=== PATIENT | female | born 1965 | race Two or more races ===

== ENCOUNTER 2022-04-03 07:17 | Outpatient (CLI) | payer OTHER | END 2022-04-03 07:21 | disposition home or self-care (01) | LOC: SONOGRAMA 07:17 | PROVIDERS: ATTEND Pathology Anatomic Pathology & Clinical Pathology | DX: E04.2 Nontoxic multinodular goiter (principal) ==

== ENCOUNTER 2022-11-04 05:28 | Day surgery (SDC) | payer OTHER ==
[2022-11-04] MEDS ORDERED: MACROBID 100 M100 MG PO (10:11)
[2022-11-04] MEDS ORDERED: TRAM1TAB98 PO (10:12)
== END 2022-11-04 14:40 | disposition home or self-care (01) ==
LOC: CIR.AMB 05:28
PROVIDERS: ATTEND Obstetrics & Gynecology Gynecology
DX: N39.3 Stress incontinence (female) (male) (principal); N36.41 Hypermobility of urethra; N88.3 Incompetence of cervix uteri; E78.49 Other hyperlipidemia; E03.9 Hypothyroidism, unspecified; Z20.822 Contact with and (suspected) exposure to COVID-19
CPT/HCPCS: 57288; C1771